=== PATIENT | male | born 1980 | race American Indian/Alaskan Native ===

== ENCOUNTER 2021-03-03 22:44 | Emergency (ER) | payer MEDICAID ==
--- NOTE | 2021-03-04 02:08 | Emergency Department Report ---
<THADDEUS HERNANDEZNALLELY Clemons - Last Filed: 03/04/21 02:58> ED Psych HPI - General Chief Complaint: Psych Stated Complaint: DIZZINESS Time Seen by Provider: 03/03/21 23:05 Source: patient, EMS Mode of arrival: Ambulatory Limitations: No Limitations - History of Present Illness Initial Comments: Patient is a 40-year-old male that presents emergency room with complaints of dizziness, audiovisual hallucination. Patient states that he is speaking to Dekkun. Patient states that he is seeing visions of Richardson coming down to talk to him. Patient states that he is having racing thoughts. Patient states he needs Richardson to stop talk with him so he can focus on his life. Patient denies homicidal and suicidal ideations. Patient states he needs help. Patient states his dizziness is unchanged by exertion. Patient states he feels thirsty. Patient denies recent travel. Patient denies recent international travel. Patient denies exposure to the novel coronavirus. Patient denies sick contacts. Patient denies fever and chills. Patient denies cough. Patient denies diarrhea. Patient denies coming in contact with anybody with symptoms of the novel coronavirus. MD Complaint: feels depressed -: Sudden Associated Psychiatric Symptoms: depression, racing thoughts, auditory hallucinations, visual hallucinations, delusions History of same: Yes Quality: constant Improves With: none Worsens With: none Context: significant life stressor Associated Symptoms: other. denies: confusion, headache, shortness of breath, nausea, vomiting, syncope, insomnia - Related Data Previous Rx's Medication Instructions Recorded Last Taken Type busPIRone [Buspar] 5 mg PO BID #60 tab 03/04/21 Unknown Rx Allergies Allergy/AdvReac Type Severity Reaction Status Date / Time No Known Allergies Allergy Unverified 03/03/21 22:53 ED Review of Systems Constitutional: denies: chills, fever Eyes: denies: eye pain, eye discharge, vision change ENT: denies: ear pain, throat pain Respiratory: denies: cough, shortness of breath, wheezing Cardiovascular: denies: chest pain, palpitations Endocrine: no symptoms reported Gastrointestinal: denies: abdominal pain, nausea, diarrhea Genitourinary: denies: urgency, dysuria Musculoskeletal: denies: back pain, joint swelling, arthralgia Skin: denies: rash, lesions Neurological: as per HPI. denies: headache, weakness, paresthesias Psychiatric: as per HPI, auditory hallucinations, visual hallucinations. denies: anxiety, depression, homicidal thoughts, suicidal thoughts Hematological/Lymphatic: denies: easy bleeding, easy bruising ED Past Medical Hx - Past Medical History Previous Medical History?: Yes Hx Psychiatric Treatment: Yes (Schizophrenia) - Surgical History Past Surgical History?: No - Family History Family history: no significant - Social History Smoking Status: Never Smoker Substance Use Type: None - Medications Home Medications: Home Medications Medication Instructions Recorded Confirmed Last Taken Type busPIRone [Buspar] 5 mg PO BID #60 tab 03/04/21 Unknown Rx ED Physical Exam - General Limitations: No Limitations General appearance: alert, in no apparent distress - Head Head exam: Present: atraumatic, normocephalic - Eye Eye exam: Present: normal appearance - ENT ENT exam: Present: mucous membranes moist - Neck Neck exam: Present: normal inspection - Respiratory Respiratory exam: Present: normal lung sounds bilaterally. Absent: respiratory distress - Cardiovascular Cardiovascular Exam: Present: regular rate, normal rhythm. Absent: systolic murmur, diastolic murmur, rubs, gallop - GI/Abdominal GI/Abdominal exam: Present: soft, normal bowel sounds - Rectal Rectal exam: Present: deferred - Extremities Exam Extremities exam: Present: normal inspection - Back Exam Back exam: Present: normal inspection - Neurological Exam Neurological exam: Present: alert, oriented X3 - Psychiatric Psychiatric exam: Present: flat affect - Expanded Psychiatric Exam Expanded Focused psych exam: Present: pressured speech, internal stimuli, delusional, restlessness, flight of ideas, loose associations - Skin Skin exam: Present: warm, dry, intact, normal color. Absent: rash ED Course - Reevaluation(s) Reevaluation #1: Patient is medically cleared. Patient will remain in the ER as an ER hold until the patient is cleared by psychiatry team. Patient's final disposition will come from our psychiatry team. 03/04/21 02:58 ED Medical Decision Making - Lab Data Result diagrams: 03/03/21 23:50 - Medical Decision Making Patient is a 40-year-old male who presents emergency room with complaints of hallucinations and dizziness. Patient had labs done which were essentially unremarkable. Patient ambulatory without difficulty. Patient had a normal neuro exam. Patient is medically cleared. Patient remained in the ER as an ER hold until the patient is cleared by our psychiatry team. Patient's final disposition will come from our psychiatry team. - Differential Diagnosis Hallucinations, acute psychosis, delusions ED Disposition Clinical Impression: Acute psychosis Disposition: DC-01 TO HOME OR SELFCARE Is pt being admited?: No Does the pt Need Aspirin: No Condition: Stable Additional Instructions: OUTPATIENT MENTAL HEALTH RESOURCES [facility], [facility] Madie Layton MD: [address] [place] [address] [place] [address] [place] [facility]: [employer] [address] [place] [address] [place] [address] [phone] [facility]: [facility] Healthcare: [address] [facility] [address] [facility] [place] [address] [facility] [address] [facility]: Micheal Llanes MD: [address] [facility] [address] [facility] [address] [facility]: [address] [place], [place] [id number] [phone] [place] CRISIS AND ACCESS LINE: Prescriptions: busPIRone [Buspar] 5 mg PO BID #60 tab Referrals: PRIMARY CARE, [Primary Care Provider] - 3-5 Days Time of Disposition: 02:59 <MCKINLEY THAKUR - Last Filed: 03/04/21 11:15> ED Review of Systems ROS: Stated complaint: DIZZINESS Other details as noted in HPI ED Course Vital Signs 03/03/21 03/03/21 03/04/21 23:13 23:16 02:56 Temperature 98.0 F 97.5 F L Pulse Rate 75 72 Respiratory 20 20 16 Rate Blood Pressure 167/100 151/95 [Right] O2 Sat by Pulse 99 98 100 Oximetry 03/04/21 09:22 Temperature 97.6 F Pulse Rate 83 Respiratory 20 Rate Blood Pressure 132/99 [Right] O2 Sat by Pulse 98 Oximetry ED Medical Decision Making - Lab Data Result diagrams: 03/03/21 23:50 03/03/21 23:50 - Medical Decision Making Patient has been cleared for discharge by psychiatric team. I have arranged discharge disposition. Critical care attestation.: If time is entered above; I have spent that time in minutes in the direct care of this critically ill patient, excluding procedure time. ED Disposition Is pt being admited?: No Does the pt Need Aspirin: No
[2021-03-04 02:14] LABS: Alanine Aminotransferase 32 units/L (7-56); Albumin 4.6 g/dL (3.9-5); BUN/Creatinine Ratio 11; Blood Urea Nitrogen 12 mg/dL (9-20); Calcium 9.2 mg/dL (8.4-10.2)
[2021-03-04 02:15] LABS: Amphetamine Screen,Urine PRESUMPTIVE NEGATIVE
[2021-03-04 02:16] LABS: Bilirubin,Urine NEG (Negative); Blood,Urine SM (Negative); Color,Urine Colorless (Yellow); Protein,Urine <15 mg/dL mg/dL (Negative); RBC,Urine < 1.0 /HPF (0.0-6.0); Urobilinogen,Urine < 2.0 mg/dL (<2.0)
[2021-03-04 02:16] LABS: Benzodiazepines Screen,Urine PRESUMPTIVE NEGATIVE; Cannabinoid Screen,Urine PRESUMPTIVE NEGATIVE; Cocaine Screen,Urine PRESUMPTIVE NEGATIVE; Methadone Screen,Urine PRESUMPTIVE NEGATIVE; Opiate Screen,Urine PRESUMPTIVE NEGATIVE
[2021-03-04 04:19] LABS: Basophils % (Auto) 0.4 % (0.0-1.8); Eosinophils # (Auto) 0.2 K/mm3 (0.0-0.4); Eosinophils % (Auto) 1.9 % (0.0-4.3); Hematocrit 46.4 % (35.5-45.6); Hemoglobin 15.7 gm/dl (11.8-15.2); Lymphocytes % (Auto) 28.9 % (13.4-35.0); Mean Corpuscular HGB Conc 34 % (32-34); Mean Corpuscular Volume 88 fl (84-94); Monocytes # (Auto) 0.8 K/mm3 (0.0-0.8); Monocytes % (Auto) 7.9 % (0.0-7.3); Platelet Count 281 K/mm3 (140-440); Red Blood Count 5.29 M/mm3 (3.65-5.03); Red Cell Distribution Width 16.5 % (13.2-15.2)
[2021-03-04 09:23] VITALS: BP 132/99
--- NOTE | 2021-03-04 10:15 | Consultation ---
History of Present Illness - Reason for Consult Consult date: 03/04/21 Reason for consult: anxiety - History of Present Psychiatric Illness Per ER Note: Patient is a 40-year-old male that presents emergency room with complaints of dizziness, audiovisual hallucination. Patient states that he is speaking to Richardson. Patient states that he is seeing visions of Richardson coming down to talk to him. Patient states that he is having racing thoughts. Patient states he needs Richardson to stop talk with him so he can focus on his life. Patient denies homicidal and suicidal ideations. Patient states he needs help. Patient states his dizziness is unchanged by exertion. Patient states he feels thirsty. Armando Giles is a 40y/o male patient who says he came to the ER for feeling anxious. He says he was "shaking, heart racing, and feeling dizzy." The patient appears nervous during the evaluation. His hands are moving constantly. When asking was he nervous he smiles and says "yea, I stay nervous." He is a/o x 3. He is cooperative and polite. The patient denies any drug use outside of THC. He also denies alcohol use. When asking the patient was he suicidal, he states "noooo, I don't want to hurt myself." I asked the patient was he homicidal, he states "not that either." The patient was asked about hallucinations, and states "I don't think they are hallucinations. I talk to God. That is my coping skills and it keeps me at peace." The patient then asks me had I "accepted God in my heart." He says he lives in a transitional housing unit and sees a therapist. The patient asks me for medication for anxiety. He says he takes haldol and "two other meds for sleep" and has been compliant. PAST PSYCHIATRIC HISTORY: Diagnoses: Anxiety. bipolar Suicide attempts or Self-harm behavior: Denies Prior psychiatric hospitalizations: Denies Substance Abuse history: Denies Previous psychiatric medications tried: haldol Outpatient treatment: Denies PAST MEDICAL HISTORY: None reported or document Family Psychiatric History: None reported or documented SOCIAL HISTORY Marital Status: Single Living Arrangements: Transitional home Employment Status: Access to guns/weapons: denies Education: History of Abuse: denies Legal History: denies REVIEW OF SYSTEMS Constitutional: Negative for weight loss ENT: Negative for stridor Respiratory: Negative for cough or hemoptysis All other systems reviewed and are negative MENTAL STATUS EXAMINATION General Appearance and Behavior: Age appropriate, wearing appropriate clothes, cooperative polite with questioning, good eye contact, cooperative Cooperation: cooperative Psychomotor Behavior: Psychomotor normal Mood: Anxious Affect and affective range: congruent with stated mood Thought Process: goal directed Thought Content: None Speech: Normal volume, Regular rate and rhythm Suicidal Ideation: Denies Homicidal Ideation: Denies hallucination: Denies Delusions: None elicited Impulse Control: Limited Insight and Judgment: Limited Memory: Intact Attention: Divided Orientation: Alert and oriented Diagnoses: Bipolar ESPERANZA Treatment Plan Buspar 5mg po BID Continue previously prescribed meds Sitter: Per primary Medical: Per primary Disposition: Do not recommend acute psychiatric inpatient treatment [employer]cher to give appropriate outpatient resources Will sign off. Thanks Case staffed with Dr. Perez. Medications and Allergies Allergies Allergy/AdvReac Type Severity Reaction Status Date / Time No Known Allergies Allergy Unverified 03/03/21 22:53 Mental Status Exam - Vital signs Last Vital Signs Temp 97.6 F 03/04/21 09:22 Pulse 83 03/04/21 09:22 Resp 20 03/04/21 09:22 BP 132/99 03/04/21 09:22 Pulse Ox 98 03/04/21 09:22 Results Result Diagrams: 03/03/21 23:50 03/03/21 23:50 Abnormal lab results 03/03/21 03/03/21 03/03/21 Range/Units 22:54 23:50 23:50 RBC 5.29 H (3.65-5.03) M/mm3 Hgb 15.7 H (11.8-15.2) gm/dl Hct 46.4 H (35.5-45.6) % RDW 16.5 H (13.2-15.2) % Harris % (Auto) 7.9 H (0.0-7.3) % Ur Specific [place] 1.001 L (1.003-1.030) Salicylates < 0.3 L (2.8-20.0) mg/dL Acetaminophen (10.0-30.0) ug/mL 03/03/21 Range/Units 23:50 RBC (3.65-5.03) M/mm3 Hgb (11.8-15.2) gm/dl Hct (35.5-45.6) % RDW (13.2-15.2) % Harris % (Auto) (0.0-7.3) % Ur Specific [place] (1.003-1.030) Salicylates (2.8-20.0) mg/dL Acetaminophen < 5.0 L (10.0-30.0) ug/mL All other labs normal.
== END 2021-03-04 11:46 | disposition home or self-care (01) ==
LOC: EEVIPCON 22:44 → ED 22:44
DX: F23 Brief psychotic disorder (principal); Z20.822 Contact with and (suspected) exposure to COVID-19
CPT/HCPCS: 36415; 80053; 80307; 81001; 85025; 99284; U0003; 80320; G0480

== ENCOUNTER 2021-03-10 19:26 | Emergency (ER) | payer MEDICAID ==
[2021-03-10 20:42] LABS: Bilirubin,Urine NEG (Negative); Blood,Urine NEG (Negative); Color,Urine Colorless (Yellow); Protein,Urine <15 mg/dL mg/dL (Negative); Urobilinogen,Urine < 2.0 mg/dL (<2.0)
[2021-03-10 20:43] LABS: Basophils # (Auto) 0.1 K/mm3 (0.0-0.1); Basophils % (Auto) 0.9 % (0.0-1.8); Eosinophils # (Auto) 0.1 K/mm3 (0.0-0.4); Eosinophils % (Auto) 1.2 % (0.0-4.3); Hematocrit 46.3 % (35.5-45.6); Hemoglobin 15.6 gm/dl (11.8-15.2); Lymphocytes # (Auto) 2.1 K/mm3 (1.2-5.4); Lymphocytes % (Auto) 20.2 % (13.4-35.0); Mean Corpuscular HGB Conc 34 % (32-34); Mean Corpuscular Volume 88 fl (84-94); Monocytes # (Auto) 0.7 K/mm3 (0.0-0.8); Monocytes % (Auto) 6.9 % (0.0-7.3); Platelet Count 282 K/mm3 (140-440); Red Blood Count 5.29 M/mm3 (3.65-5.03); Red Cell Distribution Width 16.1 % (13.2-15.2)
[2021-03-10 20:48] LABS: WBC,Urine < 1.0 /HPF (0.0-6.0)
[2021-03-10 20:49] LABS: Amphetamine Screen,Urine Negative; Benzodiazepines Screen,Urine Negative; Cannabinoid Screen,Urine Negative; Cocaine Screen,Urine Negative; Methadone Screen,Urine Negative; Opiate Screen,Urine Negative
[2021-03-10] MEDS ORDERED: ZIPRASIDONE MESYLATE 20 MG VIAL IM ONE ×3 (20:51→21:30)
[2021-03-10] MEDS ORDERED: WATER FOR INJ Sterile (PF) 10 ML ONE (20:52)
[2021-03-10 20:56] LABS: BUN/Creatinine Ratio 10; Blood Urea Nitrogen 10 mg/dL (9-20); Calcium 9.3 mg/dL (8.4-10.2); Hemolysis Index 13
--- NOTE | 2021-03-10 21:15 | Emergency Department Report ---
<KAITY ALMODOVAR - Last Filed: 03/11/21 11:11> ED Psych HPI - General Chief Complaint: Altered Mental Status Stated Complaint: PSYCHOSIS/MH EVAL Time Seen by Provider: 03/10/21 19:49 - Related Data Home Medications Medication Instructions Recorded Confirmed Last Taken Benztropine [Cogentin] 1 mg PO HS 03/11/21 03/11/21 Unknown haloperidoL [Haloperidol] 10 mg PO HS 03/11/21 03/11/21 Unknown hydroCHLOROthiazide [HCTZ] 12.5 mg PO HS 03/11/21 03/11/21 Unknown traZODone [Desyrel] 50 mg PO QHS 03/11/21 03/11/21 Unknown Previous Rx's Medication Instructions Recorded Last Taken Type busPIRone [Buspar] 5 mg PO BID #60 tab 03/04/21 Unknown Rx Divalproex [Andrew DUFF] 250 mg PO BID 30 Days #60 tablet 03/11/21 Unknown Rx risperiDONE [RisperDAL] 1 mg PO QHS 30 Days #30 tablet 03/11/21 Unknown Rx Allergies Allergy/AdvReac Type Severity Reaction Status Date / Time No Known Allergies Allergy Unverified 03/03/21 22:53 ED Past Medical Hx - Medications Home Medications: Home Medications Medication Instructions Recorded Confirmed Last Taken Type busPIRone [Buspar] 5 mg PO BID #60 tab 03/04/21 03/11/21 Unknown Rx Benztropine [Cogentin] 1 mg PO HS 03/11/21 03/11/21 Unknown History Divalpronona Duff [Andrew DUFF] 250 mg PO BID 30 Days #60 tablet 03/11/21 Unknown Rx haloperidoL [Haloperidol] 10 mg PO HS 03/11/21 03/11/21 Unknown History hydroCHLOROthiazide [HCTZ] 12.5 mg PO HS 03/11/21 03/11/21 Unknown History risperiDONE [RisperDAL] 1 mg PO QHS 30 Days #30 tablet 03/11/21 Unknown Rx traZODone [Desyrel] 50 mg PO QHS 03/11/21 03/11/21 Unknown History ED Medical Decision Making - Lab Data Result diagrams: 03/10/21 20:17 03/10/21 20:17 - Medical Decision Making 03/11/21 1112AM: This patient initially came in yesterday with some erratic behavior and concern for an exacerbation of his schizophrenia displaying some signs of acute psychosis. He was given some Geodon as treatment. He was seen by the psychiatric team, and then myself, this morning. At this time he is calm and appropriate, oriented and does not appear to be displaying any signs of acute psychosis. He denies any suicidal or homicidal ideations. Labs have been unremarkable including CBC, metabolic panel, blood alcohol level. We never obtained a urine sample for urinalysis or UDS. It is possible that the patient could have used some type of illicit drug causing a mood disorder or exacerbation of his schizophrenia. Vital signs have been reassuring throughout his ED course including being afebrile. The psychiatric team has decided that patient does not require inpatient stabilization at this time. He lives in a transition home. He has an adult d aycare for his schizophrenia. The psychiatric team has written prescriptions for him for his psychiatric medications and he has been given multiple outpatient resources. He has been instructed to return to the emergency department with any worsening of his symptoms, thoughts of harming himself or others, or with any acute distress. Critical Care Time: No ED Disposition Clinical Impression: Schizophrenia, Acute psychosis Disposition: DC-01 TO HOME OR SELFCARE Is pt being admited?: No Condition: Stable Instructions: Schizophrenia, Managing Schizophrenia Additional Instructions: OUTPATIENT MENTAL HEALTH RESOURCES [facility], [facility] Madie Layton MD: [address] [facility] [address] [place] [address] [place], [place] [id number] [place] [facility] [employer] [address] [place] [address] [place] [address] [phone] [facility] Integr[facility] Psychiatry: [facility] Healthcare: [address] [facility] [address] [facility] [place] [address] [facility] [address] [place] [facility]: Micheal Llanes MD: [address] [facility] [address] [facility] [id number] [facility]: [address] [place] [address] [phone] [place] CRISIS AND ACCESS LINE: Prescriptions: risperiDONE [RisperDAL] 1 mg PO QHS 30 Days #[address] [DepaKOTE DR] 250 mg PO BID 30 Days #60 tablet Referrals: [facility] [Provider Group] - 2-3 Days PRIMARY CARE,MD [Primary Care Provider] - 2-3 Days Time of Disposition: 11:14 <ALIA ARCHER - Last Filed: 03/13/21 22:32> ED Psych HPI - General Source: EMS Mode of arrival: Ambulatory - History of Present Illness Initial Comments: Patient is 40 years old male with history of schizophrenia. Patient brought to the emergency room for mental health evaluation. Patient found to be with erratic behavior, flight of ideas and pressured speech. Patient started screaming in the ER and became very aggressive. Patient is obviously responding to internal stimuli. Patient received Geodon 20 mg IM for chemical sedation. Patient is unable to answer question at this moment. Patient was seen here 2 days ago for visual hallucination. MD Complaint: altered mental status -: unknown Associated Psychiatric Symptoms: racing thoughts, auditory hallucinations ED Review of Systems ROS: Stated complaint: PSYCHOSIS/MH EVAL Other details as noted in HPI Comment: All other systems reviewed and negative Constitutional: denies: chills, fever Respiratory: denies: cough, shortness of breath Cardiovascular: denies: chest pain Gastrointestinal: denies: abdominal pain, nausea, vomiting Psychiatric: anxiety, auditory hallucinations, visual hallucinations ED Past Medical Hx - Past Medical History Hx Psychiatric Treatment: Yes (Schizophrenia) - Social History Smoking Status: Never Smoker Substance Use Type: None ED Physical Exam - General Limitations: Altered Mental Status General appearance: alert, anxious, other (agitated ) - Head Head exam: Present: atraumatic, normocephalic, normal inspection - Eye Eye exam: Present: normal appearance, PERRL - ENT ENT exam: Present: normal exam, normal orophraynx, mucous membranes moist - Neck Neck exam: Present: normal inspection, full ROM. Absent: tenderness, meningismus - Respiratory Respiratory exam: Present: normal lung sounds bilaterally - Cardiovascular Cardiovascular Exam: Present: regular rate, normal rhythm, normal heart sounds - GI/Abdominal GI/Abdominal exam: Present: soft, normal bowel sounds. Absent: distended, tenderness, guarding, rebound, rigid, organomegaly, mass, bruit, pulsatile mass, hernia - Extremities Exam Extremities exam: Present: normal inspection, full ROM, normal capillary refill. Absent: tenderness, pedal edema, calf tenderness - Back Exam Back exam: Present: normal inspection, full ROM. Absent: CVA tenderness (R), CVA tenderness (L) - Neurological Exam Neurological exam: Present: alert, CN II-XII intact, normal gait. Absent: motor sensory deficit - Psychiatric Psychiatric exam: Present: agitated, manic - Skin Skin exam: Present: warm, intact, normal color ED Course Vital Signs 03/10/21 03/10/21 03/10/21 21:38 21:45 22:00 Temperature 98.6 F 98.6 F Pulse Rate 76 76 Respiratory 18 18 Rate Blood Pressure 178/109 Blood Pressure 178/109 [Right] O2 Sat by Pulse 98 98 98 Oximetry 03/11/21 03/11/21 03/11/21 02:05 09:57 10:05 Temperature 97.3 F L 98.0 F Pulse Rate 77 75 Respiratory 18 18 Rate Blood Pressure Blood Pressure 126/85 117/81 [Right] O2 Sat by Pulse 100 100 100 Oximetry ED Medical Decision Making - Lab Data Result diagrams: 03/10/21 20:17 03/10/21 20:17 Critical care attestation.: If time is entered above; I have spent that time in minutes in the direct care of this critically ill patient, excluding procedure time.
[2021-03-11 10:06] VITALS: BP 117/81
--- NOTE | 2021-03-11 10:07 | Consultation ---
History of Present Illness - Reason for Consult Consult date: 03/11/21 Reason for consult: psychosis - History of Present Psychiatric Illness Per ED Note: Patient is 40 years old male with history of schizophrenia. Patient brought to the emergency room for mental health evaluation. Patient found to be with erratic behavior, flight of ideas and pressured speech. Patient started screaming in the ER and became very aggressive. Patient is obviously responding to internal stimuli. Patient received Geodon 20 mg IM for chemical sedation. Patient is unable to answer question at this moment. Patient was seen here 2 days ago for visual hallucination. Armando Giles is a 40 year old male with a history of Schizophrenia, Anxiety and Bipolar who presents to the ED with psychosis. In my interview with the patient, he is calm and cooperative. The patient reports that " I came because I was feeling weird." The patient states he is compliant with psychotropic medications however, he could not recall names of meds. The patient reports he resides in a transitional home, attends a day program where he sees a therapist daily. The patient denies any current suicidal/homicidal ideation and denies hallucinations. PAST PSYCHIATRIC HISTORY: Diagnoses: Schizophrenia, Anxiety and Bipolar Suicide attempts or Self-harm behavior: Denies Prior psychiatric hospitalizations: Yes Substance Abuse history: Marijuana Previous psychiatric medications tried: Unknown Outpatient treatment: Denies PAST MEDICAL HISTORY: None reported or document Family Psychiatric History: None reported or documented SOCIAL HISTORY Marital Status: Single Living Arrangements: Transitional home Employment Status: unemployed Access to guns/weapons: denies Education: 9th grade History of Abuse: denies Legal History: denies REVIEW OF SYSTEMS Constitutional: Negative for weight loss ENT: Negative for stridor Respiratory: Negative for cough or hemoptysis All other systems reviewed and are negative MENTAL STATUS EXAMINATION General Appearance and Behavior: Age appropriate, wearing appropriate clothes, cooperative polite with questioning, good eye contact, cooperative Cooperation: cooperative Psychomotor Behavior: Psychomotor normal Mood: good Affect and affective range: congruent with stated mood Thought Process: goal directed Thought Content: None Speech: Normal volume, Regular rate and rhythm Suicidal Ideation: Denies Homicidal Ideation: Denies hallucination: Denies Delusions: None elicited Impulse Control: Limited Insight and Judgment: Limited Memory: Intact Attention: Divided Orientation: Alert and oriented Diagnoses: Schizophrenia- Treatment Plan Risperidone 1mg po QHS Depakote 250mg po BID Sitter: Per primary Medical: Per primary Disposition: Do not recommend acute psychiatric inpatient treatment Last Greaser to give appropriate outpatient resources Will sign off. Thanks Case staffed with Dr. Perez. Medications and Allergies Medications and Allergies Allergies Allergy/AdvReac Type Severity Reaction Status Date / Time No Known Allergies Allergy Unverified 03/03/21 22:53 Home Medications Medication Instructions Recorded Confirmed Last Taken Type busPIRone [Buspar] 5 mg PO BID #60 tab 03/04/21 03/11/21 Unknown Rx Benztropine [Cogentin] 1 mg PO HS 03/11/21 03/11/21 Unknown History haloperidoL [Haloperidol] 10 mg PO HS 03/11/21 03/11/21 Unknown History hydroCHLOROthiazide [HCTZ] 12.5 mg PO HS 03/11/21 03/11/21 Unknown History traZODone [Desyrel] 50 mg PO QHS 03/11/21 03/11/21 Unknown History Mental Status Exam - Vital signs Last Vital Signs Temp 98.0 F 03/11/21 10:05 Pulse 75 03/11/21 10:05 Resp 18 03/11/21 10:05 BP 117/81 03/11/21 10:05 Pulse Ox 100 03/11/21 10:05 Results Result Diagrams: 03/10/21 20:17 03/10/21 20:17 Abnormal lab results 03/10/21 03/10/21 03/10/21 Range/Units 20:17 20:17 20:17 RBC 5.29 H (3.65-5.03) M/mm3 Hgb 15.6 H (11.8-15.2) gm/dl Hct 46.3 H (35.5-45.6) % RDW 16.1 H (13.2-15.2) % Seg Neutrophils % 70.8 H (40.0-70.0) % Sodium 136 L (137-145) mmol/L Ur Specific [place] (1.003-1.030) Salicylates < 0.3 L (2.8-20.0) mg/dL Acetaminophen (10.0-30.0) ug/mL 03/10/21 03/10/21 Range/Units 20:17 Unknown RBC (3.65-5.03) M/mm3 Hgb (11.8-15.2) gm/dl Hct (35.5-45.6) % RDW (13.2-15.2) % Seg Neutrophils % (40.0-70.0) % Sodium (137-145) mmol/L Ur Specific [place] 1.001 L (1.003-1.030) Salicylates (2.8-20.0) mg/dL Acetaminophen 5.0 L (10.0-30.0) ug/mL All other labs normal.
== END 2021-03-11 11:56 | disposition home or self-care (01) ==
LOC: ED 19:26 → EEVIPCON 19:26 → ED 03-11 11:56
DX: F31.9 Bipolar disorder, unspecified (principal); F23 Brief psychotic disorder
CPT/HCPCS: 36415; 80048; 80307; 81001; 85025; 96372; 99284; J3486; 80320; G0480